=== PATIENT | female | born 1985 | race Caucasian/White ===

== ENCOUNTER 2016-12-18 21:06 | Emergency (ER) | payer OTHER | END 2016-12-18 22:33 | disposition home or self-care (01) | LOC: ER1 21:06 | DX: S90.32XA Contusion of left foot, initial encounter (principal); F17.210 Nicotine dependence, cigarettes, uncomplicated; W20.8XXA Other cause of strike by thrown, projected or falling object, initial encounter; Y92.009 Unspecified place in unspecified non-institutional (private) residence as the place of occurrence of the external cause | CPT/HCPCS: 73630; 99283 ==

== ENCOUNTER 2020-08-20 02:26 | Emergency (ER) | payer OTHER ==
[~2020-08-20 02:26] MED LIST: CIPRO HC OTIC S10 ML EARRT; ERYTHROMYCIN OP1 GM OP; FLAGYL500 MG PO; KEFLEX CAP 500500 MG PO; OMNICEF 300 MG300 MG PO; ZOFRAN4 MG PO
[2020-08-20 03:17] LABS: HEMOGLOBIN 15.6 gm/dl (12.3-15.3); RED BLOOD COUNT 4.42 M/UL (4.00-5.10); WHITE BLOOD COUNT 18.5 K/UL (4.5-11.0)
[2020-08-20 03:38] LABS: BUN/CREATININE RATIO 17 (0-10)
[2020-08-20] MEDS ORDERED: PHENERGAN 12.12.5 MG PR (07:02)
[2020-08-20] MEDS ORDERED: PROTONIX40 MG PO (07:02)
[2020-08-20] MEDS ORDERED: ZOFRAN ODT 4 MG4 MG PO (07:02)
[2020-08-21] MEDS ORDERED: FLAGYL500 MG PO (21:30)
== END 2020-08-20 07:17 | disposition home or self-care (01) ==
LOC: ER1 02:26
PROVIDERS: Physician Assistant
DX: R10.13 Epigastric pain (principal); R07.9 Chest pain, unspecified; R11.2 Nausea with vomiting, unspecified; I49.8 Other specified cardiac arrhythmias; Z90.49 Acquired absence of other specified parts of digestive tract
CPT/HCPCS: 71045; 80053; 82550; 82553; 83690; 83735; 83874; 84484; 84703; 85025; 93005; 96365; 96375; 99285; C9113; J2405; Q9967

== ENCOUNTER 2020-08-21 16:41 | Emergency (ER) | payer OTHER ==
[~2020-08-21 16:41] MED LIST changes: +PHENERGAN 12.12.5 MG PR; +PROTONIX40 MG PO; +ZOFRAN ODT 4 MG4 MG PO
[2020-08-21 17:19] LABS: RED BLOOD COUNT 4.28 M/UL (4.00-5.10)
[2020-08-21 17:20] LABS: WHITE BLOOD COUNT 12.6 K/UL (4.5-11.0)
[2020-08-21 17:39] LABS: BUN/CREATININE RATIO 19 (0-10)
[2020-08-21] MEDS ORDERED: FLAGYL500 MG PO (21:30)
== END 2020-08-21 21:45 | disposition home or self-care (01) ==
LOC: ER1 16:41
PROVIDERS: Emergency Medicine
DX: K52.9 Noninfective gastroenteritis and colitis, unspecified (principal); F17.200 Nicotine dependence, unspecified, uncomplicated; Z90.49 Acquired absence of other specified parts of digestive tract; Z90.710 Acquired absence of both cervix and uterus; Z98.51 Tubal ligation status; Z98.890 Other specified postprocedural states
CPT/HCPCS: 36415; 80053; 81001; 83690; 85025; 96374; 96375; 99284; J1885; J2270; J2405

== ENCOUNTER 2021-02-01 15:57 | Emergency (ER) | payer OTHER | END 2021-02-01 17:28 | disposition left against medical advice (07) | LOC: ER1 15:57 | DX: Z53.21 Procedure and treatment not carried out due to patient leaving prior to being seen by health care provider (principal) ==

== ENCOUNTER 2021-03-05 16:11 | Emergency (ER) | payer OTHER ==
[2021-03-05] MEDS ORDERED: BACTROBAN OINT22 GM EXT (16:20)
[2021-03-05] MEDS ORDERED: BACTRIM 400-801 EACH PO (16:20)
== END 2021-03-05 16:27 | disposition home or self-care (01) ==
LOC: ER1 16:11
DX: T63.301A Toxic effect of unspecified spider venom, accidental (unintentional), initial encounter (principal); F17.210 Nicotine dependence, cigarettes, uncomplicated; Z90.49 Acquired absence of other specified parts of digestive tract; Z90.710 Acquired absence of both cervix and uterus
CPT/HCPCS: 99282

== ENCOUNTER 2021-07-06 18:17 | Emergency (ER) | payer OTHER ==
[~2021-07-06 18:17] MED LIST changes: +BACTRIM 400-801 EACH PO; +BACTROBAN OINT22 GM EXT
== END 2021-07-06 18:45 | disposition left against medical advice (07) ==
LOC: ER1 18:17
DX: Z53.21 Procedure and treatment not carried out due to patient leaving prior to being seen by health care provider (principal)